=== PATIENT | female | born 1980 | race Caucasian/White ===

== ENCOUNTER 2019-05-07 12:00 | Emergency (ER) | payer SELFPAY ==
--- NOTE | 2019-05-07 12:21 | EDM.PDOC ---
ED HPI GENERAL MEDICAL PROBLEM - General Chief Complaint: ENT Problem Stated Complaint: PT FELL/ NOSE BLEEDING Time Seen by Provider: 05/07/19 12:04 - History of Present Illness INITIAL COMMENTS - FREE TEXT/NARRATIVE: HISTORY AND PHYSICAL: History of present illness: Patient 38-year-old female no significant past medical history presents status post fall she injured her right knee left ankle and midface she's had some epistaxis subsequent no loss consciousness no neck pain no chest or abdominal pain or trauma she also sustained multiple mild abrasions tetanus status to be determined Review of systems: As per history of present illness and below otherwise all systems reviewed and negative. Past medical history: As per history of present illness and as reviewed below otherwise noncontributory. Surgical history: As per history of present illness and as reviewed below otherwise noncontributory. Social history: No reported history of drug or alcohol abuse. Family history: As per history of present illness and as reviewed below otherwise noncontributory. Physical exam: HEENT: Dried blood noted intranasal bilateral no septal hematoma or deviation noted no active bleeding, normocephalic, pupils reactive, negative for conjunctival pallor or scleral icterus, mucous membranes moist, throat clear, neck supple, nontender, trachea midline. Lungs: Clear to auscultation, breath sounds equal bilaterally, chest nontender. Heart: S1S2, regular, negative for clicks, rubs, or JVD. Abdomen: Soft, nondistended, nontender. Negative for masses or hepatosplenomegaly. Negative for costovertebral tenderness. Pelvis: Stable nontender. Genitourinary: Deferred. Rectal: Deferred. Extremities: Mild tenderness to palpation of her right knee there is no gross instability neurovascular exam is unremarkable left ankle is small swelling greatest in the region of the lateral malleolus no point tenderness or crepitation Achilles tendon is intact is no proximal fibular tenderness Neuro: Awake, alert, oriented. Cranial nerves II through XII unremarkable. Cerebellum unremarkable. Motor and sensory unremarkable throughout. Exam nonfocal. Diagnostics: X-ray right knee x-ray nasal bones x-ray left ankle Therapeutics: To be determined Impression: #1 acute right knee injury #2 acute left ankle injury #3 multiple minor abrasions #3 blood midface trauma with epistaxis resolved Definitive disposition and diagnosis as appropriate pending reevaluation and review of above. Right Knee Pain Score (Numeric/FACES): 9 Left Ankle Pain Score (Numeric/FACES): 8 Left Elbow Pain Score (Numeric/FACES): 8 Nose Pain Score (Numeric/FACES): 8 - Related Data Allergies Allergy/AdvReac Type Severity Reaction Status Date / Time No Known Allergies Allergy Verified 05/07/19 12:21 Home Meds: Home Meds . [No Known Home Meds] 05/07/19 [History] ED ROS GENERAL - Review of Systems Review Of Systems: ROS reveals no pertinent complaints other than HPI. ED EXAM, GENERAL - Physical Exam Exam: See Below (See dictation) Course - Vital Signs Last Recorded V/S: Last Vital Signs Temp 36.1 C 05/07/19 12:18 Pulse 113 H 05/07/19 12:18 Resp 18 05/07/19 12:18 BP 127/89 05/07/19 12:18 Pulse Ox 96 05/07/19 12:18 Departure - Departure Time of Disposition: 22:13 Disposition: Home, Self-Care 01 Clinical Impression: Knee injury, Ankle injury, Head trauma - Discharge Information Instructions: Musculoskeletal Pain Referrals: PCP,Unknown [Primary Care Provider] - Forms: ED Department Discharge Additional Instructions: 1. Follow up with PCP as directed 2. Alternate Tylenol and Motrin as needed for pain 3. Use ice to areas of injuries as tolerated 4. Return to ED as needed
--- NOTE | 2019-05-07 13:46 | CR ---
HISTORY: Fall. TECHNIQUE: Three views of the right knee. COMPARISON: No prior. FINDINGS: There is no acute fracture or malalignment. No suprapatellar joint effusion. No radiopaque foreign body or soft tissue gas. IMPRESSION: No acute fracture or malalignment. Dictated by Jordan Dominguez MD @ 05/07/2019 1:45:28 PM Dictated by: Jordan Dominguez MD @ 05/07/2019 13:45:33 (Electronically Signed)
--- NOTE | 2019-05-07 13:46 | CR ---
HISTORY: Fall. TECHNIQUE: Three views of the left ankle. COMPARISON: No prior. FINDINGS: There is no acute fracture. No widening of the ankle mortise. Plantar calcaneal spur. No radiopaque foreign body or soft tissue gas. IMPRESSION: No acute fracture or malalignment. Dictated by Jordan Dominguez MD @ 05/07/2019 1:44:21 PM Dictated by: Jordan Dominguez MD @ 05/07/2019 13:44:25 (Electronically Signed)
--- NOTE | 2019-05-07 13:49 | CR ---
HISTORY: Fall. TECHNIQUE: Three views of the nasal bones. COMPARISON: No prior. FINDINGS: No acute nasal bone fracture. Frontal and maxillary sinuses appear clear. IMPRESSION: No acute nasal bone fracture. Dictated by Jordan Dominguez MD @ 05/07/2019 1:46:40 PM Dictated by: Jordan Dominguez MD @ 05/07/2019 13:46:44 (Electronically Signed)
== END 2019-05-07 14:10 | disposition home or self-care (01) ==
LOC: MW.ED 12:00
DX: S09.90XA Unspecified injury of head, initial encounter (principal); S80.211A Abrasion, right knee, initial encounter; S90.512A Abrasion, left ankle, initial encounter; W18.39XA Other fall on same level, initial encounter
CPT/HCPCS: 70160; 70160-26; 73562-26-RT; 73562-RT; 73610-26-LT; 73610-LT; 99282; 99283-25